=== PATIENT | female | born 1960 | race Caucasian/White ===

== ENCOUNTER 2017-01-16 18:31 | Emergency (ER) | payer OTHER ==
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
[2017-01-16] MEDS ORDERED: DOXYCYCLINE 100 MG PREPACK#2 BTL TAKEHOME ONE (20:09)
[2017-01-16] MEDS ORDERED: HYDROCOD/APAP 5/325 PREPACK#6 BTL TAKEHOME ONE (20:09)
[2017-01-16 20:23] VITALS: BP 136/83; PULSE 88; RESP 18; TEMP 100; O2SAT 97
== END 2017-01-16 20:24 | disposition home or self-care (01) ==
PROC: 0H98XZZ Drainage of Buttock Skin, External Approach (ICD-10-PCS; principal; 2017-01-16)
DX: L02.214 Cutaneous abscess of groin (principal)